=== PATIENT | female | born 1990 | race African-American/Black ===

== ENCOUNTER 2019-03-15 00:35 | Emergency (ER) | payer SELFPAY ==
[2019-03-15] MEDS ORDERED: Adacel (T-DAP) 0.5 ML SYRINGE ONE (00:45)
[2019-03-15] MEDS ORDERED: Ketorolac Tromethamine 60 MG/2 ML VIAL ONE (01:17)
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
== END 2019-03-15 01:34 | disposition home or self-care (01) ==
LOC: NAV ERS 00:35
DX: S01.511A Laceration without foreign body of lip, initial encounter (principal); S60.012A Contusion of left thumb without damage to nail, initial encounter; S00.01XA Abrasion of scalp, initial encounter; Y04.0XXA Assault by unarmed brawl or fight, initial encounter
CPT/HCPCS: 90471; 90715; 96372; J1885

== ENCOUNTER 2019-10-12 09:08 | Emergency (ER) | payer SELFPAY | END 2019-10-12 10:06 | disposition home or self-care (01) | LOC: NAV ERS 09:08 | DX: J06.9 Acute upper respiratory infection, unspecified (principal) | CPT/HCPCS: 87081; 87430; 99283 ==

== ENCOUNTER 2021-11-02 08:43 | Emergency (ER) | payer SELFPAY ==
[2021-11-02] MEDS ORDERED: Ketorolac Tromethamine 30 MG/ML VIAL ONE (09:46)
[2021-11-02 09:54] LABS: #Basophils 0.1 thou/uL (0.0-0.2); #Eosinphils 0.1 thou/uL (0.0-0.7); #Lymphocytes 1.9 thou/uL (1.20-3.40); #Monocytes 0.7 thou/uL (0.11-0.59); #Neutrophils 4.2 thou/uL (1.40-6.50); %Basophils 1.2 % (0.0-1.0); %Eosinophils 1.8 % (0.0-10.0); %Lymphocytes 27.8 % (21.0-51.0); %Monocytes 9.4 % (0.0-10.0); %Neutrophils 59.8 % (42.0-75.0); Hemoglobin 9.7 g/dL (12.0-16.0); Mean Corpuscular HGB CONC 27.9 g/dL (32.0-36.0); Mean Corpuscular Hemoglobin 20.2 pg (27.0-31.0); Mean Corpuscular Volume 72.3 fL (78.0-98.0); Mean Platelet Volume 6.6 fL (7.4-10.4); Platelet Count 338 thou/uL (130-400); RBC Distribution Width 19.1 % (11.5-14.5)
[2021-11-02 09:56] LABS: Anisocytosis SLIGHT = 6-15 cells (100X) (0-5/hpf); Microcytosis SLIGHT = 6-15 cells (100X) (0-5/hpf); Platelet Morphology Comment Appears Adequate
[2021-11-02 10:02] LABS: ALT (SGPT) 14 U/L (8-55); AST (SGOT) 17 U/L (5-34); Albumin 3.9 g/dL (3.5-5.0); Alkaline Phosphatase 105 U/L (40-110); Anion Gap 10 mmol/L (10-20); BUN (Urea Nitrogen) 16 mg/dL (7.0-18.7); Bilirubin, Total 0.4 mg/dL (0.2-1.2); Calc. Creatinine Clearance 0 mL/min (70-130); Calcium 10.4 mg/dL (7.8-10.44); Carbon Dioxide 25 mmol/L (22-29); Chloride 104 mmol/L (98-107); Globulin 4.2 g/dL (2.4-3.5); Glucose 87 mg/dL (70-105); Protein, Total 8.1 g/dL (6.0-8.3); Sodium 135 mmol/L (136-145)
[2021-11-02 10:29] LABS: Bilirubin Negative (Negative); Blood, Urine Small (Negative); Clarity Clear (Clear); Glucose, Urine (Dipstick) Negative (Negative); Ketone, Urine Negative (Negative); Leukocyte Small (Negative); Nitrite Negative (Negative); Protein, Urine (Dipstick) Negative (Neg-Trace); Specific Gravity, Urine 1.025 (1.005-1.030); Urobilinogen 0.2 mg/dL (Less than 2)
[2021-11-02 10:32] LABS: Bacteria/HPF Rare-Few HPF (None Seen); RBC/HPF 0-3 HPF (0-3); Squamous Epithelial 0-3 HPF (0-3); WBC/HPF 0-3 HPF (0-3)
[2021-11-02 10:36] LABS: Pregnancy Test - Urine (BHCG) Negative (Negative)
[2021-11-02 10:37] LABS: Pregu Control Background? CLEAR/WHITE (CLR/WHITE); Pregu Control Bar Appear? YES (CONTROL BAR); Specific Gravity 1.025 (1.002-1.036)
== END 2021-11-02 11:28 | disposition home or self-care (01) ==
LOC: NAV ERS 08:43
DX: R10.32 Left lower quadrant pain (principal)
CPT/HCPCS: 74176; 80053; 81003; 81015; 81025; 85025; 96372; J1885

== ENCOUNTER 2023-07-02 00:34 | Emergency (ER) | payer SELFPAY ==
[2023-07-02] MEDS ORDERED: Fleet Saline Enema 133 ML BOT ONE ×2 (01:06→01:44)
[2023-07-02 01:14] LABS: Bilirubin Negative (Negative); Blood, Urine Moderate (Negative); Clarity Clear (Clear); Glucose, Urine (Dipstick) Negative (Negative); Ketone, Urine Negative (Negative); Leukocyte Negative (Negative); Nitrite Negative (Negative); Protein, Urine (Dipstick) 100 mg/dL (Neg-Trace); pH, Urine 5.5 (5.0-9.0)
[2023-07-02 01:17] LABS: Pregnancy Test - Urine (BHCG) Negative (Negative); Pregu Control Background? CLEAR/WHITE (CLR/WHITE); Pregu Control Bar Appear? YES (CONTROL BAR); Specific Gravity 1.028 (1.002-1.036)
[2023-07-02 01:18] LABS: Specific Gravity, Urine 1.028 (1.002-1.036)
[2023-07-02 01:19] LABS: CAUTI Indications for Culture Pelvic or flank pain; RBC/HPF 0-3 HPF (0-3)
[2023-07-02 01:20] LABS: Bacteria/HPF None Seen HPF (None Seen); Urine Culture Reflex No No
[2023-07-02] MEDS ORDERED: Polyethylene Glycol 3350 17 GM Packet PO SCH (02:00)
== END 2023-07-02 04:09 | disposition home or self-care (01) ==
LOC: NAV ERS 00:34
DX: K59.00 Constipation, unspecified (principal)
CPT/HCPCS: 81001; 81025; 99283

== ENCOUNTER 2023-11-01 08:25 | Emergency (ER) | payer SELFPAY ==
[2023-11-01] MEDS ORDERED: Ketorolac Tromethamine 60 MG/2 ML VIAL ONE (08:49)
== END 2023-11-01 08:56 | disposition home or self-care (01) ==
LOC: NAV ERS 08:25
DX: S29.011A Strain of muscle and tendon of front wall of thorax, initial encounter (principal); S46.011A Strain of muscle(s) and tendon(s) of the rotator cuff of right shoulder, initial encounter
CPT/HCPCS: 96372; J1885

== ENCOUNTER 2025-10-25 08:07 | Emergency (ER) | payer SELFPAY | END 2025-10-25 09:27 | disposition home or self-care (01) | LOC: NAV ERS 08:07 | DX: J20.9 Acute bronchitis, unspecified (principal) | CPT/HCPCS: 71046 ==

== ENCOUNTER 2025-11-06 19:32 | Emergency (ER) | payer SELFPAY ==
[2025-11-06] MEDS ORDERED: Ibuprofen 800 MG TAB ONE (20:41)
== END 2025-11-06 20:50 | disposition home or self-care (01) ==
LOC: NAV ERS 19:32
DX: J06.9 Acute upper respiratory infection, unspecified (principal); R51.9 Headache, unspecified
CPT/HCPCS: 87428; 99284